=== PATIENT | female | born 1995 | race Caucasian/White ===

== ENCOUNTER 2017-05-21 00:50 | Emergency (ER) | payer MEDICAID ==
[~2017-05-21 00:50] MED LIST: FERROUS SULFAT325 MG; FLAGYL500 MG PO; PRENATAL COMPLE1 TAB PO
[2017-05-21 01:33] LABS: BASOPHILS 0.2 % (0-2); EOSINOPHILS 2.8 % (0-7); HEMATOCRIT 36.8 % (36.0-48.0); IMMATURE GRANULOCYTES 0.1 % (0-5); LYMPHOCYTES 35.4 % (15-50); MCH 29.5 pg (26.0-34.0); MCHC 35.3 g/dL (31.0-37.0); MCV 83.6 fL (80.0-100.0); MEAN PLATELET VOLUME 10.2 fL (7.4-10.4); MONOCYTES 5.5 % (2-11); PLATELET COUNT 259 10x3/uL (130-400); RDW 13.2 % (11.5-14.5); WBC 8.9 10x3/uL (4.8-10.8)
[2017-05-21 01:39] LABS: INR 1.06 (0.85-1.17); PROTIME 13.4 SECONDS (11.6-15.0)
[2017-05-21 01:41] LABS: HCG SERUM POSITIVE (NEGATIVE)
[2017-05-21 01:45] LABS: ALBUMIN 4.1 g/dL (3.4-5.0); ALKALINE PHOSPHATASE 56 U/L (46-116); ALT (SGPT) 10 U/L (10-68); CALC OSMOLALITY 271 mosm/kg (275-300); CALCIUM 8.9 mg/dL (8.5-10.1); CARBON DIOXIDE 26.2 mmol/L (21.0-32.0); CHLORIDE - SERUM 101 mmol/L (98-107); CREATININE - SERUM 0.6 mg/dL (0.6-1.3); GLUCOSE 78 mg/dL (74-106); POTASSIUM - SERUM 3.2 mmol/L (3.5-5.1); PROTEIN - SERUM 7.4 g/dL (6.4-8.2); SODIUM 137 mmol/L (136-145); UREA NITROGEN 9 mg/dL (7-18); eGFR NON AFRICAN AMERICAN > 90 mL/min (90-120)
[2017-05-21 02:11] LABS: HCG - QUANTITATIVE (MATERNAL) 82319 mIU/mL; LIPASE 90 U/L (73-393)
[2017-05-21 03:02] LABS: APPEARANCE CLOUDY (CLEAR); BILIRUBIN NEGATIVE (NEGATIVE); COLOR STRAW (YELLOW); GLUCOSE NEGATIVE (NEGATIVE); KETONE NEGATIVE (NEGATIVE); NITRITE NEGATIVE (NEGATIVE); PROTEIN NEGATIVE (NEGATIVE); SPECIFIC GRAVITY 1.005 (1.005-1.020); UROBILINOGEN NORMAL (NORMAL)
[2017-05-21 03:03] LABS: BACTERIA MODERATE /hpf (NONE SEEN); RED CELLS - URINE NONE SEEN /hpf (0-5)
== END 2017-05-21 04:31 | disposition home or self-care (01) ==
LOC: D.ER 00:50
PROVIDERS: Emergency Medicine
DX: O26.899 Other specified pregnancy related conditions, unspecified trimester (principal); Z3A.00 Weeks of gestation of pregnancy not specified; R10.9 Unspecified abdominal pain; O23.40 Unspecified infection of urinary tract in pregnancy, unspecified trimester

== ENCOUNTER 2018-08-23 21:53 | Inpatient (IN) | payer MEDICAID ==
[~2018-08-23] VITALS: Ht 165.1 cm; Wt 60.9 kg
[2018-08-23 22:57] LABS: BASOPHILS 0.3 % (0-2); EOSINOPHILS 5.6 % (0-7); HEMATOCRIT 35.2 % (36.0-48.0); HEMOGLOBIN 11.9 g/dL (12-16); IMMATURE GRANULOCYTES 0.1 % (0-5); LYMPHOCYTES 46.5 % (15-50); MCH 30.7 pg (26.0-34.0); MCHC 33.8 g/dL (31.0-37.0); MCV 90.7 fL (80.0-100.0); MONOCYTES 5.3 % (2-11); NEUTROPHILS 42.2 % (40-80); PLATELET COUNT 261 10x3/uL (130-400); RBC 3.88 10x6/uL (4.00-5.40); RDW 13.2 % (11.5-14.5)
[2018-08-23 23:10] LABS: ALBUMIN 3.4 g/dL (3.4-5.0); ALKALINE PHOSPHATASE 91 U/L (46-116); ALT (SGPT) 14 U/L (10-68); BILIRUBIN - TOTAL 0.09 mg/dL (0.2-1.3); CALC OSMOLALITY 276 mosm/kg (275-300); CALCIUM 8.6 mg/dL (8.5-10.1); CARBON DIOXIDE 25.1 mmol/L (21.0-32.0); CHLORIDE - SERUM 103 mmol/L (98-107); CREATININE - SERUM 0.8 mg/dL (0.6-1.3); GLUCOSE 126 mg/dL (74-106); POTASSIUM - SERUM 3.4 mmol/L (3.5-5.1); PROTEIN - SERUM 6.7 g/dL (6.4-8.2); SODIUM 138 mmol/L (136-145); UREA NITROGEN 10 mg/dL (7-18); eGFR NON AFRICAN AMERICAN > 90 mL/min (90-120)
[2018-08-23 23:20] LABS: INR 1.07 (0.85-1.17); PROTIME 13.4 SECONDS (11.6-15.0)
[2018-08-24 01:00] VITALS: BP 128/65
[2018-08-24 03:28] VITALS: BP 118/71; BMI 22.3
[2018-08-24 04:00] VITALS: BP 118/71
[2018-08-24 08:55] VITALS: BP 115/78
[2018-08-24 12:36] VITALS: BP 106/35
[2018-08-24 16:15] VITALS: Ht 165.1 cm; Wt 60.9 kg
[2018-08-24 16:31] LABS: % SATURATION 18 % (15-55); IRON 67 ug/dl (35-150); TOTAL IRON BIND CAPACITY 366 ug/dl (260-445); UNSAT IRON BIND CAPACITY 299 ug/dl (150-375)
[2018-08-24 16:43] VITALS: BP 136/39
--- NOTE | 2018-08-25 09:47 | MORECARE ---
CASE MANAGEMENT DISCHARGE SUMMARY PATIENT: STAS TRAN UNIT: [id number] ADM DATE: 08/24/18 AGE: 23 : [birth year] SEX: F ROOM/BED: D.2107 AUTHOR: BRINA CRUZ PHYSICIAN: REFERRING PHYSICIAN: KATI ALVARADO MD DATE OF SERVICE: 08/25/18 Discharge Plan Patient Name: STAS TRAN Facility: [facility]:[place] : 1995 Planned Disposition: Left Against Medical Advice Anticipated Discharge Date: 08/24/18 Discharge Date: 08/24/2018 Expected LOS: 1 Initial Reviewer: [email or web address] Initial Review Date: 08/25/2018 Generated: 08/25/18 10:47 am Patient Name: STAS TRAN Page [id number] at 0947 All edits/amendments must be made on the electronic document DICTATION DATE: 08/25/18945 RUG RENOVATOR: NAOMI 08/25/18945 RPT#: [id number] DC DATE:08/24/18 STATUS: DIS IN [facility] [address] [place] [address] END OF REPORT
[2018-08-25 10:19] LABS: FOLATE (FOLIC ACID) - SERUM 7.8 ng/mL (>3.0)
== END 2018-08-24 19:29 | disposition left against medical advice (07) | DRG 194 ==
LOC: D.ER 21:53 → D.EDHOLD 08-24 01:48 → D.M2 08-24 01:48
PROVIDERS: Family Medicine; Internal Medicine Nephrology; ADMIT Family Medicine; ATTEND Family Medicine
DX: J18.1 Lobar pneumonia, unspecified organism (principal); F17.213 Nicotine dependence, cigarettes, with withdrawal; D50.9 Iron deficiency anemia, unspecified; E87.6 Hypokalemia; M25.561 Pain in right knee; Z86.711 Personal history of pulmonary embolism